=== PATIENT | female | born 1965 | race Caucasian/White ===

== ENCOUNTER 2016-11-22 23:13 | Observation (INO) | payer OTHER ==
[~2016-11-22] VITALS: Ht 157.5 cm; Wt 53.8 kg
[~2016-11-22 23:13] MED LIST: ADULT LOW DOSE81 MG PO; ALDACTONE25 MG PO; COREG 3.125M3.125 MG PO; FUROSEMIDE40 MG PO; LIPITOR TAB 2020 MG PO; LISINOPRIL5 MG PO; PLAVIX 75 MG TA75 MG PO
[2016-11-23 00:50] LABS: HEMOGLOBIN 12.7 gm/dl (12.3-15.3); RED BLOOD COUNT 4.22 M/UL (4.00-5.10); WHITE BLOOD COUNT 7.9 K/UL (4.5-11.0)
[2016-11-23] MEDS ORDERED: LANOXIN TAB0.125 MG PO (05:11)
[2016-11-23] MEDS ORDERED: NITROSTAT0.4 MG SL (05:14)
[2016-11-23] MEDS ORDERED: ENTRESTO PO (05:23)
[2016-11-23] MEDS ORDERED: PROTONIX 20 MG20 MG PO (17:36)
== END 2016-11-23 17:00 | disposition home or self-care (01) ==
LOC: ER1 23:13 → ZEROF 11-23 02:15 → M/S 11-23 02:15
PROVIDERS: Physician Assistant; ADMIT Internal Medicine
DX: R07.89 Other chest pain (principal); I25.10 Atherosclerotic heart disease of native coronary artery without angina pectoris; I25.2 Old myocardial infarction; I11.0 Hypertensive heart disease with heart failure; I50.22 Chronic systolic (congestive) heart failure; I25.5 Ischemic cardiomyopathy; I45.81 Long QT syndrome; J45.909 Unspecified asthma, uncomplicated; K21.9 Gastro-esophageal reflux disease without esophagitis; R94.6 Abnormal results of thyroid function studies; Z98.61 Coronary angioplasty status; Z79.82 Long term (current) use of aspirin; Z79.02 Long term (current) use of antithrombotics/antiplatelets; Z79.899 Other long term (current) drug therapy; Z95.810 Presence of automatic (implantable) cardiac defibrillator; Z88.6 Allergy status to analgesic agent
CPT/HCPCS: ECHO; 36415; 71010; 80053; 80061; 80162; 81001; 82550; 82553; 83874; 83880; 84439; 84443; 84484; 85025; 87086; 93005; 93306; 99284; G0378

== ENCOUNTER → 2016-12-29 | Outpatient (CLI) | payer OTHER ==
[~2016-12-29] MED LIST changes: +ENTRESTO PO; +LANOXIN TAB0.125 MG PO; +NITROSTAT0.4 MG SL; +PROTONIX 20 MG20 MG PO
== END ==
LOC: MAMO 12-21 11:40 → US 12-21 13:00
DX: Z12.31 Encounter for screening mammogram for malignant neoplasm of breast (principal); E01.0 Iodine-deficiency related diffuse (endemic) goiter
CPT/HCPCS: 76536; G0202

== ENCOUNTER → 2017-01-05 | Outpatient (CLI) | payer OTHER | LOC: MAMO 14:37 | DX: Z13.1 Encounter for screening for diabetes mellitus (principal) ==

== ENCOUNTER → 2020-10-02 | Outpatient (CLI) | payer BC ==
[~2020-10-02] MED LIST changes: +PREDNISONE20 MG PO; +ROBITUSSIN DM473 ML PO; +TESSALON PERLE100 MG PO; +VENTOLIN HFA 66.7 GM INH; +VIBRAMYCIN100 MG PO; +ZYRTEC10 M3 PO
== END ==
LOC: LAB 09:18
PROVIDERS: Physician Assistant
DX: I25.10 Atherosclerotic heart disease of native coronary artery without angina pectoris (principal); I42.9 Cardiomyopathy, unspecified; I11.0 Hypertensive heart disease with heart failure; I50.22 Chronic systolic (congestive) heart failure; E78.5 Hyperlipidemia, unspecified; I25.5 Ischemic cardiomyopathy; R00.2 Palpitations; Z95.810 Presence of automatic (implantable) cardiac defibrillator
CPT/HCPCS: 36415; 80053; 80061; 83735; 84439; 84443; 84481

== ENCOUNTER 2021-03-31 20:44 | Emergency (ER) | payer BC ==
[2021-03-31 22:10] LABS: HEMOGLOBIN 12.5 gm/dl (12.3-15.3); RED BLOOD COUNT 4.28 M/UL (4.00-5.10); WHITE BLOOD COUNT 14.5 K/UL (4.5-11.0)
[2021-04-01] MEDS ORDERED: CEFPODOXIME PR200 MG PO (03:45)
== END 2021-04-01 04:00 | disposition home or self-care (01) ==
LOC: ER1 20:44
PROVIDERS: Physician Assistant
DX: N30.90 Cystitis, unspecified without hematuria (principal); I25.10 Atherosclerotic heart disease of native coronary artery without angina pectoris; I48.91 Unspecified atrial fibrillation; Z79.899 Other long term (current) drug therapy
CPT/HCPCS: 80053; 81001; 83690; 85025; 87086; 96374; 99284; J0696; Q9967

== ENCOUNTER → 2022-02-11 | Outpatient (CLI) | payer BC ==
[~2022-02-11] MED LIST changes: +CEFPODOXIME PR200 MG PO
== END ==
LOC: LAB 10:14
PROVIDERS: Nurse Practitioner Family
DX: E78.5 Hyperlipidemia, unspecified (principal); I11.0 Hypertensive heart disease with heart failure; I50.22 Chronic systolic (congestive) heart failure; I25.10 Atherosclerotic heart disease of native coronary artery without angina pectoris; I25.5 Ischemic cardiomyopathy; R00.2 Palpitations
CPT/HCPCS: 36415; 80053; 80061; 83735; 84439; 84443; 84481